=== PATIENT | female | born 1960 | race Two or more races ===

== ENCOUNTER 2017-09-21 11:12 | Outpatient (CLI) | payer OTHER ==
[2017-09-22] MEDS ORDERED: ATORVASTATIN CA40 MG PO (10:13)
[2017-09-22] MEDS ORDERED: HYZAAR 100-251 EACH PO (10:13)
[2017-09-22] MEDS ORDERED: SINGULAIR10 MG PO (10:13)
[2017-09-22] MEDS ORDERED: ZOLOFT100 MG PO (10:13)
[2017-09-22] MEDS ORDERED: METFORMIN HCL500 MG PO (10:14)
[2017-09-22] MEDS ORDERED: ZYRTEC10 MG PO (10:14)
== END 2017-09-21 11:36 | disposition home or self-care (01) ==
LOC: RAD 501 11:12
DX: J44.9 Chronic obstructive pulmonary disease, unspecified (principal)

== ENCOUNTER → 2017-09-27 | Day surgery (SDC) | payer OTHER ==
[~2017-09-27] MED LIST: ATORVASTATIN CA40 MG PO; HYZAAR 100-251 EACH PO; METFORMIN HCL500 MG PO; SINGULAIR10 MG PO; ZOLOFT100 MG PO; ZYRTEC10 MG PO
== END | disposition home or self-care (01) ==
LOC: ADM 09-21 14:30 → CIR.AMB 08:39
DX: M19.041 Primary osteoarthritis, right hand (principal); D21.11 Benign neoplasm of connective and other soft tissue of right upper limb, including shoulder